=== PATIENT | female | born 1970 | race African-American/Black ===

== ENCOUNTER 2017-01-22 18:39 | Emergency (ER) | payer MEDICAID ==
[~2017-01-22] VITALS: Ht 170.2 cm; Wt 79.0 kg
[2017-01-22 18:51] VITALS: BP 146/90
[2017-01-22] MEDS ORDERED: ONDANSETRON HCL 4MG/2ML VIAL IV STA (20:01)
== END 2017-01-22 20:45 | disposition left against medical advice (07) ==
LOC: ER 18:39
DX: Z53.21 Procedure and treatment not carried out due to patient leaving prior to being seen by health care provider (principal)
CPT/HCPCS: 93005